=== PATIENT | female | born 1965 | race Caucasian/White ===

== ENCOUNTER → 2024-11-01 13:39 | Outpatient (REF) | payer OTHER, SELFPAY | LOC: WDC 13:39 | PROVIDERS: ATTENDING PHYSICIAN Family Medicine | DX: Z12.31 Encounter for screening mammogram for malignant neoplasm of breast (principal) | CPT/HCPCS: 77063; 77067 ==

== ENCOUNTER → 2025-03-29 15:55 | Outpatient (REF) | payer OTHER, SELFPAY | LOC: HWRAD 15:55 | PROVIDERS: ATTENDING PHYSICIAN Student in an Organized Health Care Education/Training Program | DX: G89.29 Other chronic pain (principal) | CPT/HCPCS: 73030 ==